=== PATIENT | male | born 1985 | race Caucasian/White ===

== ENCOUNTER 2018-11-02 10:10 | Emergency (ER) | payer MEDICARE, MEDICAID ==
[2018-11-02 10:29] VITALS: BP 112/74
== END 2018-11-02 11:37 | disposition home or self-care (01) ==
LOC: EDBD 10:10 → ER 10:10
DX: S09.90XA Unspecified injury of head, initial encounter (principal); Z91.011 Allergy to milk products; Y08.89XA Assault by other specified means, initial encounter; Y93.89 Activity, other specified; Y99.8 Other external cause status; Y92.89 Other specified places as the place of occurrence of the external cause

== ENCOUNTER 2019-05-29 19:57 | Emergency (ER) | payer MEDICARE, MEDICAID ==
[~2019-05-29] VITALS: Ht 157.5 cm; Wt 111.1 kg
[2019-05-29 21:18] LABS: Basophils # (auto) 0 uL; Basophils % (auto) 0.2 % (0.0-2.0); Eosinophils # (auto) 0 uL; Eosinophils % (auto) 0.4 % (0.0-7.0); Hematocrit 45.5 % (41.0-53.0); Hemoglobin 15.3 g/dL (13.5-17.5); Lymphocytes # (auto) 1.2 uL; Lymphocytes % (auto) 10.3 % (10.0-50.0); Mean Corpuscular Hemoglobin 27.3 pg (28.0-32.0); Mean Corpuscular Hgb Conc. 33.6 g/dL (32.0-36.0); Mean Corpuscular Volume 81.3 fL (80.0-100.0); Monocytes # (auto) 0.7 uL; Monocytes % (auto) 6.3 % (0.0-12.0); Neutrophils # (auto) 9.9 uL; Neutrophils % (auto) 82.8 % (37.0-80.0); Platelet Count (auto) 324 10^3/uL (140-450); Red Cell Distribution Width 15.4 % (11.8-14.3); White Blood Cell 11.9 10^3/uL (4.4-10.8)
[2019-05-29 21:41] LABS: Albumin 4.3 g/dL (3.4-5.0); BUN/Creatinine Ratio 16.5; Calcium 9.4 mg/dL (8.5-10.1); Potassium 3.6 mmol/L (3.5-5.1); Total Protein 8.4 g/dL (6.4-8.2)
[2019-05-29 21:48] LABS: Bilirubin, Total 0.4 mg/dL (0.2-1.0)
[2019-05-30] MEDS ORDERED: LORazepam 2MG/ML-1ML VIAL IV ONE (00:15)
[2019-05-30 02:29] VITALS: BP 122/83
== END 2019-05-30 02:59 | disposition home or self-care (01) ==
LOC: ER 20:03
DX: G40.909 Epilepsy, unspecified, not intractable, without status epilepticus (principal); R73.9 Hyperglycemia, unspecified
CPT/HCPCS: 36415; 70450; 80053; 82962; 85025; 93005; 96374; 99284; J2060

== ENCOUNTER 2021-03-19 18:23 | Emergency (ER) | payer OTHER, MEDICAID ==
[~2021-03-19] VITALS: Ht 188 cm; Wt 111.1 kg
[2021-03-19 20:49] VITALS: BP 143/102
== END 2021-03-19 20:46 | disposition home or self-care (01) ==
LOC: ER 18:25
DX: I16.0 Hypertensive urgency (principal); Z91.011 Allergy to milk products
CPT/HCPCS: 71045; 93005